=== PATIENT | female | born 1955 | race Two or more races ===

== ENCOUNTER 2018-01-12 15:19 | Emergency (ER) | payer MEDICAID ==
[~2018-01-12] VITALS: Ht 152.4 cm; Wt 81.6 kg
[2018-01-12 16:12] LABS: Basophils # (auto) 0 uL; Basophils % (auto) 0.5 % (0.0-2.0); Eosinophils # (auto) 0.1 uL; Eosinophils % (auto) 1.4 % (0.0-7.0); Hematocrit 40.7 % (36.0-46.0); Hemoglobin 14.3 g/dL (12.2-16.2); Lymphocytes # (auto) 1.9 uL; Lymphocytes % (auto) 26.4 % (10.0-50.0); Mean Corpuscular Hemoglobin 33.8 pg (28.0-32.0); Mean Corpuscular Hgb Conc. 35.1 g/dL (32.0-36.0); Mean Corpuscular Volume 96.1 fL (80.0-100.0); Monocytes # (auto) 0.4 uL; Monocytes % (auto) 5.3 % (0.0-12.0); Neutrophils # (auto) 4.7 uL; Neutrophils % (auto) 66.4 % (37.0-80.0); Nucleated Red Blood Cells % 0.1 %; Platelet Count (auto) 190 10^3/uL (140-450); Red Blood Cells 4.23 10^6/uL (4.0-5.20); Red Cell Distribution Width 12.9 % (11.8-14.3); White Blood Cell 7.1 10^3/uL (4.4-10.8)
[2018-01-12 16:30] LABS: Albumin 4.4 g/dL (3.4-5.0); Bilirubin, Total 0.5 mg/dL (0.2-1.0); Calcium 9.1 mg/dL (8.5-10.1); Potassium 3.5 mmol/L (3.5-5.1); Total Protein 8.2 g/dL (6.4-8.2)
[2018-01-12 16:57] LABS: Urine Bacteria NONE SEEN /hpf (None Seen); Urine Blood Negative /uL (Negative); Urine Mucus FEW (None Seen); Urine Specific Gravity 1.031 (1.001-1.035); Urine WBC 3 /hpf (0 - 5)
[2018-01-12 18:43] VITALS: BP 132/63
== END 2018-01-12 21:18 | disposition home or self-care (01) ==
LOC: ER 15:28
DX: N39.0 Urinary tract infection, site not specified (principal); E78.5 Hyperlipidemia, unspecified
CPT/HCPCS: 36415; 72125; 80053; 81001; 85025; 93005

== ENCOUNTER 2018-10-11 00:41 | Inpatient (IN) | payer MEDICAID ==
[~2018-10-11] VITALS: Ht 157.5 cm; Wt 83.9 kg
[2018-10-11 03:05] LABS: Basophils # (auto) 0 uL; Basophils % (auto) 0.3 % (0.0-2.0); Eosinophils # (auto) 0.1 uL; Eosinophils % (auto) 1.4 % (0.0-7.0); Hematocrit 41.6 % (36.0-46.0); Hemoglobin 14.6 g/dL (12.2-16.2); Lymphocytes # (auto) 1.8 uL; Lymphocytes % (auto) 22.5 % (10.0-50.0); Mean Corpuscular Hemoglobin 33.7 pg (28.0-32.0); Mean Corpuscular Hgb Conc. 35.1 g/dL (32.0-36.0); Monocytes # (auto) 0.5 uL; Monocytes % (auto) 6.5 % (0.0-12.0); Neutrophils # (auto) 5.6 uL; Neutrophils % (auto) 69.3 % (37.0-80.0); Nucleated Red Blood Cells % 0.1 %; Platelet Count (auto) 167 10^3/uL (140-450); Red Blood Cells 4.34 10^6/uL (4.0-5.20); Red Cell Distribution Width 12.9 % (11.8-14.3); White Blood Cell 8.1 10^3/uL (4.4-10.8)
[2018-10-11 03:08] LABS: Urine Bacteria FEW /hpf (None Seen); Urine Blood Negative /uL (Negative); Urine Specific Gravity 1.011 (1.001-1.035); Urine WBC 2 /hpf (0 - 5)
[2018-10-11 03:13] LABS: Alanine Aminotransferase 155 U/L (13-56); Amylase 59 U/L (25-115); Anion Gap 10 (5-15); Aspartate Aminotransferase 118 U/L (15-37); BUN/Creatinine Ratio 13.3; Blood Urea Nitrogen 11 mg/dL (7-18); Calcium 9.2 mg/dL (8.5-10.1); Carbon Dioxide 26 mmol/L (21-32); Chloride 104 mmol/L (98-107); GFR African American 89 mL/min; GFR Non-African American 74 mL/min; Glucose 123 mg/dL (74-106); Lipase 156 U/L (73-393); Magnesium 2.2 mg/dL (1.6-2.6); Potassium 3.9 mmol/L (3.5-5.1); Sodium 140 mmol/L (136-145)
[2018-10-11 03:18] LABS: Alkaline Phosphatase 96 U/L (45-117); Bilirubin, Total 0.7 mg/dL (0.2-1.0); Total Protein 7.9 g/dL (6.4-8.2)
[2018-10-11] MEDS ORDERED: ONDANSETRON HCL 4 MG/2 ML VIAL IV PRN (11:15)
[2018-10-11] MEDS ORDERED: MORPHINE SULF INJ 2 MG/ML SYRINGE 1ML IV PRN ×2 (11:15)
[2018-10-11] MEDS ORDERED: NITROGLYCERIN 0.4 MG SL TAB SL PRN (11:15)
[2018-10-11] MEDS: D5W/SOD CHL 0.45%/KCL 20MEQ 1,000 ML IV SCH ×2 (11:40→21:15)
--- NOTE | 2018-10-11 13:30 | NUR ---
[facility] admit from ER YONATAN REYNOLDS admitted to [facility]. Patient oriented to Maria Victoria valentin RN, unit, room, bed, and unit policies regarding patient care and visiting hours. Patient weighed by bedscale and encouraged to call if they need something. All questions and concerns addressed, patient verbalized understanding.
[2018-10-11 13:35] VITALS: BP 140/62
[2018-10-11 13:46] LABS: Partial Thromboplastin Time 26.2 sec (23.78-33.04); Prothrombin Time 10.7 sec (9.27-12.13)
--- NOTE | 2018-10-11 14:15 | NUR ---
OFF UNIT PATIENT TAKEN OFF UNIT TO H[facility]AN. NO S/S OF DISTRESS NOTED AT TIME OF DEPARTURE.
--- NOTE | 2018-10-11 15:06 | NUR ---
MEDICATED WITH MORPHINE 2MG IVP FOR HIDA SCAN AND C/O PAIN
--- NOTE | 2018-10-11 15:30 | NUR ---
ON UNIT PATIENT TRANSFERRED BACK TO UNIT. NO S/S OF DISTRESS NOTED AT TIME OF ARRIVAL.
[2018-10-11 15:37] VITALS: BP 140/62
[2018-10-11 17:00] VITALS: BP 128/58
--- NOTE | 2018-10-11 18:39 | NUR ---
End of shift PATIENT RESTING IN BED. NO S/S OF DISTRESS, INSTRUCTED PT TO CALL PRN. BED IN LOWEST LOCKED POSITION, CALL LIGHT IN REACH. ENDORSED CARE TO NOC RN
--- NOTE | 2018-10-11 20:26 | NUR ---
open note assumed care of pt. upon entering room pt awake and alert. pt daughter at bedside. pt denies any pain at this time. no distress noted or expressed. pt and daughter updated on plan of care, aware of Lap Cely procedure tomorrow with David. pt and daughter request that lao speaking staff be present at time of MD detailing procedure to pt. this nurse will endorse to day shift RN pt request. pt has no additional questions at this time. call light in reach and encouraged by this nurse to call as needed. will round q1hr and prn.
[2018-10-11 22:00] VITALS: BP 129/70
[2018-10-11] MEDS: FAMOTIDINE (10MG/ML) 2ML VL IV SCH (22:43)
[2018-10-12 04:44] VITALS: BP 100/59
[2018-10-12 06:41] LABS: Basophils # (auto) 0 uL; Basophils % (auto) 0.5 % (0.0-2.0); Eosinophils # (auto) 0.1 uL; Eosinophils % (auto) 1.3 % (0.0-7.0); Hematocrit 40.2 % (36.0-46.0); Hemoglobin 14.1 g/dL (12.2-16.2); Lymphocytes # (auto) 1.7 uL; Lymphocytes % (auto) 19.8 % (10.0-50.0); Mean Corpuscular Hemoglobin 33.9 pg (28.0-32.0); Mean Corpuscular Hgb Conc. 35.1 g/dL (32.0-36.0); Mean Corpuscular Volume 96.6 fL (80.0-100.0); Monocytes # (auto) 0.6 uL; Monocytes % (auto) 7.4 % (0.0-12.0); Neutrophils # (auto) 5.9 uL; Nucleated Red Blood Cells % 0.1 %; Platelet Count (auto) 147 10^3/uL (140-450); Red Blood Cells 4.16 10^6/uL (4.0-5.20); Red Cell Distribution Width 12.9 % (11.8-14.3); White Blood Cell 8.4 10^3/uL (4.4-10.8)
[2018-10-12 07:00] LABS: Partial Thromboplastin Time 26.9 sec (23.78-33.04); Prothrombin Time 10.7 sec (9.27-12.13)
[2018-10-12 07:07] LABS: Potassium 3.7 mmol/L (3.5-5.1)
[2018-10-12] MEDS: D5W/SOD CHL 0.45%/KCL 20MEQ 1,000 ML IV SCH ×2 (07:15→18:06)
[2018-10-12 07:22] LABS: Albumin 3.6 g/dL (3.4-5.0); BUN/Creatinine Ratio 9.5; Bilirubin, Total 1.2 mg/dL (0.2-1.0); Calcium 8.8 mg/dL (8.5-10.1); Total Protein 7.3 g/dL (6.4-8.2)
--- NOTE | 2018-10-12 07:45 | NUR ---
Opening Shift Note Assumed care of patient, awake, alert, and oriented x4. Patient has no complaints of pain at this time. Patient has IV in right hand 22g running D5 1/2 NS 20meq KCL at 100mL/hr, patient tolerating well. Patient has IV in left AC 20g saline locked and flushing well, patient tolerating well. Patient is on room air with no S/S of distress/SOB. Patient's skin is intact. Instructed on POC and to call for assist PRN, will continue to monitor for changes Q1hr and PRN. Bed in lowest locked position, call light within reach.
[2018-10-12 09:00] VITALS: BP 106/48
[2018-10-12] MEDS: FAMOTIDINE (10MG/ML) 2ML VL IV SCH ×2 (10:33→21:57)
--- NOTE | 2018-10-12 12:00 | NUR ---
OFF UNIT PATIENT TRANSFERRED TO PRE-OP VIA BED. NO S/S OF DISTRESS NOTED AT TIME OF DEPARTURE.
[2018-10-12] MEDS ORDERED: ceFAZolin 1GM/50ML 50 ML IV ONE (12:04)
[2018-10-12] MEDS ORDERED: POVIDONE IODINE 10 % TOPICAL OINT 30GM TOP ONE (12:16)
[2018-10-12] MEDS ORDERED: MIDAZOLAM HCL 1MG/1ML-2 ML VIAL ONE (12:23)
[2018-10-12] MEDS ORDERED: fentaNYL CITRATE 100 MCG/2 ML VL ONE (12:23)
[2018-10-12] MEDS ORDERED: MEPERIDINE HCL (25 MG/ML) 1ML VIAL ONE (12:23)
[2018-10-12] MEDS ORDERED: DexAMETHasone SOD PHOS 10MG/1ML VIAL INJ ONE (12:54)
[2018-10-12] MEDS ORDERED: PROPOFOL 10 MG/ML 20 ML IV ONE (12:54)
[2018-10-12 13:00] VITALS: BP 118/73
[2018-10-12] MEDS ORDERED: ROCURONIUM 10MG/ML 10ML VIAL IV ONE (13:01)
--- NOTE | 2018-10-12 15:05 | NUR ---
ON UNIT PATIENT TRANSFERRED BACK TO UNIT VIA BED FROM PACU. NO S/S OF DISTRESS OR PAIN NOTED ON ARRIVAL. 3 ABDOMINAL INCISIONS CDI. ABDOMINAL BINDER APPLIED. WILL CONTINUE TO MONITOR.
[2018-10-12 17:48] VITALS: BP 120/56
--- NOTE | 2018-10-12 18:40 | NUR ---
End of shift PATIENT RESTING IN BED. NO S/S OF DISTRESS, INSTRUCTED PT TO CALL PRN. BED IN LOWEST LOCKED POSITION, CALL LIGHT IN REACH. ENDORSED CARE TO NOC RN.
--- NOTE | 2018-10-12 19:10 | NUR ---
RECEIVED PATIENT LYING IN BED, AWAKE, ALERT, ORIENTED X4. NO S/S OF RESPIRATORY DISTRESS, DENIES SOB AND CHEST PAIN. ORIENTED ON PLAN OF CARE. BED IS LOCKED AND IN LOWEST LEVEL, SIDE RAILS UP X2, CALL LIGHT WITHIN REACH. WILL CONTINUE TO MONITOR.
[2018-10-12 21:57] VITALS: BP 117/64
[2018-10-13] MEDS: D5W/SOD CHL 0.45%/KCL 20MEQ 1,000 ML IV SCH (04:31)
[2018-10-13 04:53] VITALS: BP 110/54
[2018-10-13 06:48] LABS: Basophils # (auto) 0 uL; Basophils % (auto) 0.2 % (0.0-2.0); Eosinophils # (auto) 0 uL; Eosinophils % (auto) 0.1 % (0.0-7.0); Lymphocytes % (auto) 9.2 % (10.0-50.0); Mean Corpuscular Hgb Conc. 35.1 g/dL (32.0-36.0); Mean Corpuscular Volume 96.9 fL (80.0-100.0); Monocytes # (auto) 0.5 uL; Monocytes % (auto) 4.5 % (0.0-12.0); Nucleated Red Blood Cells % 0.1 %; Platelet Count (auto) 150 10^3/uL (140-450); Red Blood Cells 3.82 10^6/uL (4.0-5.20); Red Cell Distribution Width 12.6 % (11.8-14.3); White Blood Cell 10.5 10^3/uL (4.4-10.8)
[2018-10-13 07:03] LABS: Albumin 3.4 g/dL (3.4-5.0); Calcium 8.7 mg/dL (8.5-10.1); Potassium 3.8 mmol/L (3.5-5.1)
[2018-10-13 07:05] LABS: Bilirubin, Total 0.9 mg/dL (0.2-1.0); Total Protein 7.1 g/dL (6.4-8.2)
--- NOTE | 2018-10-13 07:20 | NUR ---
Opening Shift Note Assumed care of patient, awake, alert and oriented x4. No S/S of distress or SOB. Pt denies pain at this time. Iv patent and infusing D5w/Sod Chl 0.45%/KCl at 100ml/hr. Incisions x3 clean dry and intact. Abdominal binder intact. Instructed on POC and to call for assist PRN, will continue to monitor for changes Q1hr and PRN.
--- NOTE | 2018-10-13 07:27 | NUR ---
CARE ENDORSED TO AM SHIFT RN
--- NOTE | 2018-10-13 07:30 | NUR ---
Opening Shift Note Assumed care of patient, awake and alert. No S/S of distress/SOB or pain. Instructed on POC and to call for assist PRN, will continue to monitor for changes Q1hr and PRN. NOTE: hematology technologist Nevaeh to complete physical assessment and administer morning medications.
[2018-10-13 07:39] LABS: BUN/Creatinine Ratio 9.5
[2018-10-13 09:00] VITALS: BP 121/52
--- NOTE | 2018-10-13 09:52 | NUR ---
TELEPHONE ORDERS Patiens daughter at bedside asking if patient can have oatmeal. Explained diet orders. Patient denies any abd pain/n/v at this time. Patient voided BM with out difficultly during am shift. elocution teacher Nevaeh received telephone orders and read back to advance patient to regular diet. Orders noted.
[2018-10-13] MEDS: FAMOTIDINE (10MG/ML) 2ML VL IV SCH (10:30)
[2018-10-13 13:00] VITALS: BP 132/84
--- NOTE | 2018-10-13 15:48 | NUR ---
ROUNDING Dr Casas roundnery on patient. Patients family at bedside. MD explained plans for discharge today and instructed on f/u care. Patient verbalized understanding.
[2018-10-13] MEDS ORDERED: OMEP20TA PO (16:26)
[2018-10-13] MEDS ORDERED: IBUP600T27 PO (16:26)
--- NOTE | 2018-10-13 17:39 | NUR ---
With family at bedside, discharge instructions given as ordered. Encourage to follow up with PMD as instructed and to make an appointment with Dr Hernandez. All questions and concerns addressed. Patient verbalized understanding. Medication reconciliation form completed and copy given to patient. IV removed with catheter intact, pressure dressing applied. Patient educated on incisional care, supplies provided. Patient taken to vehicle via wheelchair with all personal belongings, accompanied by staff and family member. No distress noted at time of departure.
[2018-10-13 17:58] VITALS: BP 106/53
== END 2018-10-13 17:39 | disposition home or self-care (01) | DRG 263 ==
LOC: ER 00:45 → OVERFLOW 11:06 → CENTRAL 13:09
PROVIDERS: ADMIT Nurse Practitioner Acute Care; ATTEND Hospitalist
PROC: 0FT44ZZ Resection of Gallbladder, Percutaneous Endoscopic Approach (ICD-10-PCS; principal; 2018-10-11)
DX: K80.12 Calculus of gallbladder with acute and chronic cholecystitis without obstruction (principal); E66.01 Morbid (severe) obesity due to excess calories; K40.90 Unilateral inguinal hernia, without obstruction or gangrene, not specified as recurrent; R79.89 Other specified abnormal findings of blood chemistry; I08.0 Rheumatic disorders of both mitral and aortic valves; N39.0 Urinary tract infection, site not specified; Z68.33 Body mass index [BMI] 33.0-33.9, adult
CPT/HCPCS: 36415; 71045; 74176; 76705; 78226; 80053; 80061; 81001; 82150; 82962; 83036; 83690; 83735; 84484; 85025; 85610; 85730; 86850; 86900; 86901; 93005; 93306; 96365; 96375; A6257; G0378; J0690; J1100; J2250; J2704; J3490

== ENCOUNTER 2023-02-26 08:30 | Emergency (ER) | payer OTHER, MEDICAID ==
[~2023-02-26] VITALS: Ht 152.4 cm; Wt 84.6 kg
[~2023-02-26 08:30] MED LIST: IBUP-1454 PO; OMEP20TA PO
[2023-02-26 09:10] VITALS: BP 154/76; PULSE 87; RESP 18; TEMP 98; O2SAT 96
[2023-02-26 09:37] LABS: Basophils # (auto) 0 10 ^3/uL (0-0.2); Basophils % (auto) 0.3 % (0.0-2.0); Eosinophils # (auto) 0.2 10 ^3/uL (0-0.8); Eosinophils % (auto) 2.1 % (0.0-7.0); Hematocrit 43.5 % (36.0-46.0); Hemoglobin 15.3 g/dL (12.2-16.2); Lymphocytes # (auto) 2.3 10 ^3/uL (0.4-5.4); Lymphocytes % (auto) 30.6 % (10.0-50.0); Mean Corpuscular Hemoglobin 33.9 pg (28.0-32.0); Mean Corpuscular Hgb Conc. 35.1 g/dL (32.0-36.0); Mean Corpuscular Volume 96.4 fL (80.0-100.0); Monocytes # (auto) 0.4 10 ^3/uL (0-1.3); Monocytes % (auto) 5.8 % (0.0-12.0); Neutrophils # (auto) 4.6 10 ^3/uL (1.6-8.6); Neutrophils % (auto) 61.2 % (37.0-80.0); Nucleated Red Blood Cells % 0.1 %; Red Blood Cells 4.51 10^6/uL (4.0-5.20); White Blood Cell 7.5 10^3/uL (4.4-10.8)
[2023-02-26 09:40] LABS: Urine Bacteria FEW /hpf (None Seen); Urine Blood TRACE /uL (Negative); Urine Clarity Clear (Clear); Urine Protein, UAD Negative (Negative); Urine Specific Gravity 1.015 (1.001-1.035); Urine Urobilinogen Normal (Negative); Urine WBC 3 /hpf (0 - 5); Urine pH 5.5 (5.0-8.0)
[2023-02-26 09:46] LABS: Urine Color Yellow (Yellow)
[2023-02-26 09:50] LABS: Alanine Aminotransferase 96 U/L (7-40); Alkaline Phosphatase 80 U/L (46-116); Anion Gap 8 (5-15); Aspartate Aminotransferase 67 U/L (13-40); BUN/Creatinine Ratio 11.5 (10.0-20.0); Blood Urea Nitrogen 10 mg/dL (9-23); Calcium 9.5 mg/dL (8.7-10.4); Carbon Dioxide 24 mmol/L (20-30); Chloride 106 mmol/L (98-107); Glucose 143 mg/dL (74-106); Potassium 3.7 mmol/L (3.5-5.1); Sodium 138 mmol/L (136-145)
[2023-02-26 09:51] LABS: Albumin 5.2 g/dL (3.2-4.8); Bilirubin, Total 0.9 mg/dL (0.2-1.0); Total Protein 7.8 g/dL (5.7-8.2)
[2023-02-26] MEDS ORDERED: IBUP-1456 PO (11:14)
== END 2023-02-26 11:16 | disposition home or self-care (01) ==
LOC: ER 08:30
DX: K40.20 Bilateral inguinal hernia, without obstruction or gangrene, not specified as recurrent (principal); E78.5 Hyperlipidemia, unspecified; Z79.1 Long term (current) use of non-steroidal anti-inflammatories (NSAID); Z79.899 Other long term (current) drug therapy
CPT/HCPCS: 36415; 74176; 80053; 81001; 85025